=== PATIENT | male | born 1960 | race Caucasian/White ===

== ENCOUNTER 2021-11-19 08:25 | Day surgery (SDC) | payer BC, SELFPAY ==
[2021-11-13 15:41] VITALS: BMI 23.7
--- NOTE | 2021-11-16 09:12 | MHC.SHP ---
Pre-Procedural Eval Section A Date of Service: 11/16/21 The patient is an INPATIENT: No Changes since office visit: No Cold of Flu in the past 2 weeks, No New Medical Problems, No Changes in Medication and No Patient answered all questions The History & Physical has been completed within 30 days and I have reviewed it.: Yes Section B Chief Complaint: Age-related nuclear cataract, right eye Allergies: Allergies Allergy/AdvReac Type Severity Reaction Status Date / Time No Known Allergies Allergy Verified 11/13/21 15:40 Plan Diagnosis/Plan: Unchanged I have reviewed the history and physical and performed a pertinent physical examination on my patient. No changes have occurred unless specified.
--- NOTE | 2021-11-16 09:23 | P.CONAN_ITS ---
Documented by User: Zaida Benavides NP 11/16/21 09:23 HPI - Anesthesia Eval Consult details Narrative: 60yo M for Right Cataract Extraction IOL Insertion PCP cleared No previous cataract on record ON LICENSE OF [facility] Past Medical History Medical History Cataract, bilateral Environmental allergies Surgical History Surgical History Hx of colonoscopy Hx of hernia repair Social History Social History Are you a primary veterinarian laboratory animal care to a significant other at home: No Do you presently have visiting nurse or other home services: No Patient Tobacco Use Status: Never used Tobacco Are you DNR?: No Advance Directives: No (will bring DOS) Advance Directives Information Provided: Yes Advance Directives on File: No Meds Allergies Allergy/AdvReac Type Severity Reaction Status Date / Time No Known Allergies Allergy Verified 11/13/21 15:40 Home Medications Medication Instructions Recorded Confirmed Last Taken Type No Known Home Meds 11/13/21 11/13/21 Unknown History Exam Exam Date and Time: November 16, 2021 09 Height,Weight and Vital Signs: Height 6 ft 3 in Weight 86.183 kg Assessment and Plan Assessment Anesthesia Assessment: Chart Reviewed Documented by User: Vivi Curtis MD 11/19/21 09:44 ON LICENSE OF [facility] Past Medical History Medical History Cataract, bilateral Environmental allergies Family History Family history of problems with anesthesia: No Surgical History Surgical History Hx of colonoscopy Hx of hernia repair History of Problems with Anesthesia: No Social History Social History Are you a primary veterinarian laboratory animal care to a significant other at home: No Do you presently have visiting nurse or other home services: No Patient Tobacco Use Status: Never used Tobacco Are you DNR?: No Advance Directives: No (will bring DOS) Advance Directives Information Provided: Yes Advance Directives on File: No Meds Allergies Allergy/AdvReac Type Severity Reaction Status Date / Time No Known Allergies Allergy Verified 11/13/21 15:40 Home Medications Medication Instructions Recorded Confirmed Last Taken Type No Known Home Meds 11/13/21 11/13/21 Unknown History Exam Height,Weight and Vital Signs: Height 6 ft 3 in Weight 86.183 kg Vital Signs Temp Pulse Resp BP Pulse Ox O2 Del Method 11/19/21 08:47 97 F 50 17 127/79 98 Room Air Airway Mallampati Class: III TM Dist: >3cm Neck ROM: Full Loose/Missing/Broken Teeth: No Heart: RRR Lungs: CTAB Assessment and Plan Assessment Anesthesia Assessment: Anesthesia Plan Discussed Final Anesthetic Review Family History of Problems with Anesthesia: No History of Problems with Anesthesia: No NPO: Yes ASA Class: I Final Preanesthetic Review: No Changes in Pt Med Stat, Meds/Allgs Chart Reviewed, Consent Obtained/Reviewed and Anes Risks/Benef Reviewed Patient Risk: Low Procedure Risk: Low Assessment/Block/Sedation in SS: Assess/Block/Sedation-SS Anesthetic Plan Anesthetic Plan: MAC: Disposition: Standard PACU
[2021-11-19 08:47] VITALS: BP 127/79; PULSE 50; RESP 17; TEMP 36.1; O2SAT 98
[2021-11-19] MEDS: Tetracaine HCl/PF 0.5% Oph Sol 4 ML DROPS 1 DROP EYE-RIGHT (08:50)
[2021-11-19] MEDS: Tropicamide 1 % Ophth Sol 3 ML BTL 1 DROP EYE-RIGHT ×3 (08:57→09:01)
[2021-11-19] MEDS: Cyclopentolate 1 % Ophth Sol 2 ML DRPBTL 1 DROP EYE-RIGHT ×3 (08:57→08:59)
[2021-11-19] MEDS: Lactated Ringers 500 ML 50 ML IV (08:57)
[2021-11-19] MEDS: Phenylephrine HCL 2.5% Oph SoL 2 ML BOTTLE 1 DROP EYE-RIGHT ×3 (08:58→09:00)
--- NOTE | 2021-11-19 10:11 | HO.PNOPHT ---
Ophthalmology Procedure Procedure Date of Service: 11/19/21 Ophthalmology Viscoelastic: Healmelida Barrettt Dual Pack Pro Ophthalmology Lenses: TECNIS [id number] (9) Procedure Notes: PREOPERATIVE DIAGNOSIS: Decreased visual acuity right eye secondary to cataract POSTOPERATIVE DIAGNOSIS: Same PROCEDURE: Right cataract extraction with toric multifocal intraocular lens insertion [place] 91Degrees SURGEON: Anuel Urbina M.D. ANESTHESIA: Topical/MAC ESTIMATED BLOOD LOSS: None COMPLICATIONS: None After obtaining informed consent, the patient was brought to the operating room suite and placed in the supine position. After adequate sedation per anesthesia, topical drops of Tetracaine were given to the right eye. The eye was then prepped and draped in the usual sterile fashion. The operating room microscope was then positioned over the operative eye and a lid speculum placed. A paracentesis was created. Viscoelastic was then instilled into the anterior chamber. A three plane incision was then created temporally, utilizing a 2.85 mm keratome. Capsulotomy forceps were then utilized to create a circular tear capsulotomy. Hydrodissection and hydrodelineation were carried out until adequate mobilization of the nucleus occurred. Phacoemulsification was then utilized to remove the dense central nucleus followed by removal of the cortical material utilizing the automated aspiration irrigation unit. Viscoelastic was instilled into the posterior capsular bag followed by placement of a toric multifocal posterior chamber intraocular lens axis 91 degrees without difficulty. The residual Viscoelastic was then removed utilizing the automated IA machine. The wound was checked and found to be watertight. The patient tolerated the procedure well and the lid speculum was removed. Intracameral injection of Vigamox 0.1 mL followed by a subtenon injection of Kenalog-40 0.2 mL were administered. The patient will be seen in the a.m.
[2021-11-19 11:02] VITALS: BP 158/81; PULSE 59; RESP 16; TEMP 36.8; O2SAT 100
--- NOTE | 2021-11-19 13:47 | HO.PNOPHT ---
Ophthalmology Procedure Procedure Date of Service: 11/19/21 Ophthalmology Viscoelastic: Healon Duet Dual Pack Pro Ophthalmology Lenses: TECNIS MULTI [id number] (9) Procedure Notes: PREOPERATIVE DIAGNOSIS: Decreased visual acuity right eye secondary to cataract POSTOPERATIVE DIAGNOSIS: Same PROCEDURE: Right cataract extraction with multifocal intraocular lens insertion; Sulcus fixation SURGEON: Anuel Urbina M.D. ANESTHESIA: Topical/MAC ESTIMATED BLOOD LOSS: None COMPLICATIONS: Capsular Rupture After obtaining informed consent, the patient was brought to the operating room suite and placed in the supine position. After adequate sedation per anesthesia, topical drops of Tetracaine were given to the right eye. The eye was then prepped and draped in the usual sterile fashion. The operating room microscope was then positioned over the operative eye and a lid speculum placed. A paracentesis was created. Viscoelastic was then instilled into the anterior chamber. A three plane incision was then created temporally, utilizing a 2.85 mm keratome. Capsulotomy forceps were then utilized to create a circular tear capsulotomy. Hydrodissection and hydrodelineation were carried out until adequate mobilization of the nucleus occurred. Phacoemulsification was then utilized to remove the dense central nucleus followed by removal of the cortical material utilizing the automated aspiration irrigation unit. Viscoelastic was instilled into the posterior capsular bag followed by placement of a multifocal posterior chamber intraocular lens without difficulty. A small wisp of vireous was noted in the anerior chamber. Also a area of Zonular dihiscence. An Anterior Vitrectomy was accomplihed. A capsular ring was placed. After removal of viscoelastic was removed the ring was malpostionedd espite multiple attempts to reposition. I elected to remove the Capsular Ring as well as the previos placed PCIOL A 3 piece multifocal lens was then positioned into the sulcus. The residual Viscoelastic was then removed utilizing the Anterior vitrector. The wound was checked and found to be watertight. The patient tolerated the procedure well and the lid speculum was removed. Intracameral injection of Vigamox 0.1 mL followed by a subtenon injection of Kenalog-40 0.2 mL were administered. The patient will be seen in the a.m.
== END 2021-11-19 11:18 | disposition home or self-care (01) ==
PROVIDERS: PCP Internal Medicine; Visit Provider Ophthalmology
PROC: (CPT 66982; principal; 2021-11-19 10:30)
DX: H25.11 Age-related nuclear cataract, right eye (principal); H52.13 Myopia, bilateral; H52.31 Anisometropia; H59.211 Accidental puncture and laceration of right eye and adnexa during an ophthalmic procedure; H27.8 Other specified disorders of lens
CPT/HCPCS: 66982; 67005; J2250; J3010; J3300; V2788

== ENCOUNTER 2022-07-29 10:06 | Day surgery (SDC) | payer BC, SELFPAY ==
[2022-07-10 10:26] VITALS: BMI 23.7
--- NOTE | 2022-07-26 08:14 | MHC.SHP ---
Pre-Procedural Eval Section A Date of Service: 07/26/22 The patient is an INPATIENT: No Changes since office visit: No Cold of Flu in the past 2 weeks, No New Medical Problems, No Changes in Medication and No Patient answered all questions The History & Physical has been completed within 30 days and I have reviewed it.: Yes Section B Chief Complaint: Displacement of intraocular lens, initial encounte Allergies: Allergies Allergy/AdvReac Type Severity Reaction Status Date / Time No Known Allergies Allergy Verified 11/13/21 15:40 Plan Diagnosis/Plan: Unchanged I have reviewed the history and physical and performed a pertinent physical examination on my patient. No changes have occurred unless specified. Time Spent With Patient Time: Total time managing care of this patient today ____ minutes.
--- NOTE | 2022-07-26 09:40 | HO.ANESPROP2 ---
Documented by User: Zaida Benavides NP 07/26/22 09:41 HPI - Anesthesia Eval Consult details Narrative: 61yo M for Right REPOSITION Cataract Extraction IOL Insertion PCP cleared Right cataract originally done 11/2021 with [facility] Past Medical History Medical History Cataract, bilateral Environmental allergies Family History Family history of problems with anesthesia: No Surgical History Surgical History Hx of colonoscopy Hx of hernia repair Hx of right cataract extraction History of Problems with Anesthesia: No Social History Social History Are you a primary career portals teacher to a significant other at home: No Do you presently have visiting nurse or other home services: No Patient Tobacco Use Status: Never used Tobacco Are you DNR?: No Advance Directives: No Advance Directives Information Provided: Yes (brochure mailed) Advance Directives on File: No Recently lost weight without trying: No Eating poorly because of decreased appetite: No Nutrition Risks: No Nutritional Risk Poor oral hygiene: No Meds Allergies Allergy/AdvReac Type Severity Reaction Status Date / Time No Known Allergies Allergy Verified 11/13/21 15:40 Home Medications Medication Instructions Recorded Confirmed Last Taken Type No Known Home Meds 11/13/21 07/10/22 Unknown History Exam Exam Date and Time: July 26, 2022 0940 Height,Weight and Vital Signs: Height 6 ft 3 in Weight 86.183 kg Assessment and Plan Assessment Anesthesia Assessment: Chart Reviewed Final Anesthetic Review Family History of Problems with Anesthesia: No History of Problems with Anesthesia: No Documented by User: Jose Fink MD 07/29/22 12:08 [facility] Past Medical History Medical History Cataract, bilateral Environmental allergies Surgical History Surgical History Hx of colonoscopy Hx of hernia repair Hx of right cataract extraction Social History Social History Are you a primary career portals teacher to a significant other at home: No Do you presently have visiting nurse or other home services: No Patient Tobacco Use Status: Never used Tobacco Are you DNR?: No Advance Directives: No Advance Directives Information Provided: Yes (brochure mailed) Advance Directives on File: No Recently lost weight without trying: No Eating poorly because of decreased appetite: No Nutrition Risks: No Nutritional Risk Poor oral hygiene: No Meds Allergies Allergy/AdvReac Type Severity Reaction Status Date / Time No Known Allergies Allergy Verified 11/13/21 15:40 Home Medications Medication Instructions Recorded Confirmed Last Taken Type No Known Home Meds 11/13/21 07/10/22 Unknown History Exam Airway Mallampati Class: II TM Dist: >3cm Neck ROM: Full Loose/Missing/Broken Teeth: No Heart: [id number] Lungs: cta b/l Assessment and Plan Assessment Anesthesia Assessment: Anesthesia Plan Discussed Final Anesthetic Review NPO: Yes ASA Class: II Final Preanesthetic Review: No Changes in Pt Med Stat, Meds/Allgs Chart Reviewed, Consent Obtained/Reviewed and Anes Risks/Benef Reviewed Patient Risk: Low Procedure Risk: Low Assessment/Block/Sedation in SS: Assess/Block/Sedation-SS Anesthetic Plan Anesthetic Plan: MAC: and Agree w/ Assess. and Plan Disposition: Standard PACU
[2022-07-29 11:38] VITALS: BP 124/53; PULSE 53; RESP 18; TEMP 36.7; O2SAT 97
[2022-07-29] MEDS: Lactated Ringers 500 ML 50 ML IV (11:53)
[2022-07-29] MEDS: Tetracaine HCl/PF 0.5% Oph Sol 4 ML DROPS 1 DROP EYE-RIGHT (11:53)
[2022-07-29] MEDS: Phenylephrine HCL 2.5% Oph SoL 2 ML BOTTLE 1 DROP EYE-RIGHT ×3 (11:53→12:06)
[2022-07-29] MEDS: Ketorolac Tromethamine 0.5% Op 5 ML DROPS 1 DROP EYE-RIGHT ×3 (11:54→12:06)
[2022-07-29] MEDS: Cyclopentolate 1 % Ophth Sol 2 ML DRPBTL 1 DROP EYE-RIGHT ×3 (11:54→12:06)
[2022-07-29] MEDS: Tropicamide 1 % Ophth Sol 3 ML BTL 1 DROP EYE-RIGHT ×3 (11:54→12:06)
[2022-07-29 13:06] VITALS: BP 143/87; PULSE 50; RESP 16; TEMP 36.6; O2SAT 100
--- NOTE | 2022-07-29 23:45 | OP_ITS ---
DATE OF SERVICE: 07/29/2022 SURGEON: Anuel Urbina MD PREOPERATIVE DIAGNOSIS: POSTOPERATIVE DIAGNOSIS: Dislocated IOL of the right eye. PROCEDURE PERFORMED: ESTIMATED BLOOD LOSS: COMPLICATIONS: ANESTHESIA: MAC. ASSISTANTS: SPECIMENS: INDICATION FOR SURGERY: Dislocated IOL of the right eye. PROCEDURE IN DETAIL: After obtaining informed consent, the patient was brought to the operating room suite and placed in supine position. After the eye was prepped and draped in the usual sterile fashion, the operative microscope was positioned over the right eye. A lid speculum was placed. A paracentesis was then created followed by instillation of viscoelastic. The haptics were inspected and found to be in good condition. No damage or torsion of the haptics was visualized. So, the apex was repositioned in to the sulcus. Automatic irrigation and aspiration was then utilized to remove the viscoelastic. BSS was utilized to repressurize the globe and check the position of the IOL. The IOL was then stable. Vigamox 0.1 mL was instilled into the anterior chamber. The patient tolerated the procedure well and he will be seen in followup. MD ROYA Blul/MODL / [id number] MTDD
== END 2022-07-29 13:29 | disposition home or self-care (01) ==
PROVIDERS: PCP Internal Medicine; Visit Provider Ophthalmology
PROC: (CPT 66985; principal; 2022-07-29 13:20)
DX: T85.22XA Displacement of intraocular lens, initial encounter (principal); H53.141 Visual discomfort, right eye; Y77.8 Miscellaneous ophthalmic devices associated with adverse incidents, not elsewhere classified; Y92.9 Unspecified place or not applicable; Z98.41 Cataract extraction status, right eye; Z96.1 Presence of intraocular lens; J30.2 Other seasonal allergic rhinitis
CPT/HCPCS: 66825; J3301

== ENCOUNTER 2023-08-21 19:07 | Emergency (ER) | payer BC, SELFPAY ==
--- NOTE | ~2023-08-21 | CT_ITS ---
EXAMINATION: CT HEAD WITHOUT CONTRAST CT CERVICAL SPINE WITHOUT CONTRAST CLINICAL INFORMATION: Status post fall. Head trauma. COMPARISON: None TECHNIQUE: Contiguous axial images are obtained from the skull base to the vertex without intravenous contrast administration. Multidetector volumetric CT imaging of the cervical spine is acquired without intravenous contrast administration. Postprocessing is performed at a dedicated workstation. Multiplanar reformatted images are submitted. This CT scan was performed using dose optimization techniques as appropriate to a performed exam including the following: *Automated exposure control *Adjustment of mA and/or kV according to patient size (this includes techniques or standardized protocols for targeted exams were dose is matched to indication/reason for exam; i.e. extremities or head) *Use of iterative reconstruction technique. DLP: 748.46 mGy-cm (CT head). 400.87 mGy-cm (CT Cervical spine). FINDINGS: CT HEAD: Ventricles and sulci are age-appropriate. There is no evidence of acute intracranial hemorrhage, midline shift or mass effect. Sharpe to white matter differentiation is well preserved. No evidence of acute territorial edematous infarction. No abnormal extra-axial fluid collection is noted. Mild cerebral volume loss. No abnormal extra-axial fluid collection is noted. Osseous calvarium is intact. No evidence of significant calvarial soft tissue swelling or hematoma. Patient is status post right lens extraction. Small mucous retention cyst is noted in the inferior left maxillary sinus. Small mucous retention cyst in the left sphenoid sinus. Mild mucosal thickening in the left frontal sinus and left ethmoid air cells. The mastoid air cells and middle ear cavities are well-aerated. CT CERVICAL SPINE: The vertebral body heights and alignment are maintained. Posterior elements are intact and in normal alignment. Atlantoaxial and atlantooccipital alignments are maintained. No evidence of prevertebral soft tissue swelling. No evidence of significant central canal or neural foraminal stenosis. No focal thyroid nodule. The airway is patent. Pleural parenchymal opacity is noted at the right apex posteriorly with more discrete nodular component measuring 1 cm in maximum dimension (series 11 image 331). CT/CT cervical spine wo IV con IMPRESSION: 1. No evidence of acute intracranial abnormality. Specifically, there is no evidence of acute intracranial hemorrhage or acute fracture of the osseous calvarium. 2. No evidence of acute fracture or traumatic subluxation in the cervical spine. 3. Pleural parenchymal opacity at the right apex posteriorly with more discrete nodular component measuring 1 cm in maximum dimension. The finding is better evaluated on the chest CT performed on the same day on 08/21/2023. Please refer to the report of chest CT for detailed description and management recommendation of the finding.
--- NOTE | ~2023-08-21 | XR_ITS ---
EXAMINATION: XR HAND AND WRIST, LEFT XR HAND AND WRIST, RIGHT XR SHOULDER, RIGHT CLINICAL INFORMATION: Fall with bilateral hand pain and right shoulder pain COMPARISON: None available. TECHNIQUE: Four views of the right shoulder. 4 views each hand FINDINGS: Right shoulder: The bones and soft tissues are normal. No fracture. Glenohumeral and acromioclavicular alignment is anatomic with normal joint space. No abnormal soft tissue calcifications. Right hand and wrist: There is some mild degenerative changes seen at the PIP joint of the fifth digit. Otherwise the exam is unremarkable. No fractures or dislocations. Left hand and wrist: There is some chondral cysts present in the metacarpal head of the third digit. No fractures or dislocations are seen. No significant degenerative changes are identified. XR/XR shoulder RT min 2V IMPRESSION: 1. No evidence of an acute osseous injury. 2. Mild degenerative changes in the right fifth PIP joint and left third metacarpal head.
--- NOTE | ~2023-08-21 | XR_ITS ---
EXAMINATION: XR HAND AND WRIST, LEFT XR HAND AND WRIST, RIGHT XR SHOULDER, RIGHT CLINICAL INFORMATION: Fall with bilateral hand pain and right shoulder pain COMPARISON: None available. TECHNIQUE: Four views of the right shoulder. 4 views each hand FINDINGS: Right shoulder: The bones and soft tissues are normal. No fracture. Glenohumeral and acromioclavicular alignment is anatomic with normal joint space. No abnormal soft tissue calcifications. Right hand and wrist: There is some mild degenerative changes seen at the PIP joint of the fifth digit. Otherwise the exam is unremarkable. No fractures or dislocations. Left hand and wrist: There is some chondral cysts present in the metacarpal head of the third digit. No fractures or dislocations are seen. No significant degenerative changes are identified. XR/XR hand wrist RT IMPRESSION: 1. No evidence of an acute osseous injury. 2. Mild degenerative changes in the right fifth PIP joint and left third metacarpal head.
--- NOTE | ~2023-08-21 | CT_ITS ---
EXAMINATION: CT CHEST WITHOUT CONTRAST CLINICAL INFORMATION: Fall from ladder with right posterior rib pain COMPARISON: None available. TECHNIQUE: Multidetector volumetric CT imaging of the chest was done. Axial MIP volume rendering provided. Sagittal and coronal reformatted images were obtained. This CT examination was performed using dose optimization techniques as appropriate, variously including the following: *Automated exposure control *Adjustment of mA and/or kV according to patient size (this includes techniques or standardized protocols for targeted exams where dose is matched to indication/reason for exam; i.e. extremities or head) *Use of iterative reconstruction technique DLP: 342 mGy-cm FINDINGS: LUNGS: There is mild biapical pleural parenchymal thickening, right greater than left. The lungs are clear with no evidence of inflammation or concerning nodules. Tiny 2 mm right upper lobe subpleural nodule is present (5:201). No pneumo or hemothorax. MEDIASTINUM: The mediastinum is normal. CORONARY ARTERY CALCIFICATION: None visualized on this study. PLEURA: There is no pleural effusion. No pleural mass or thickening. AXILLA: No lymphadenopathy. UPPER ABDOMEN: There is a 2.4 mm nonobstructing left lower pole renal calculus. There Is a benign 1.1 cm cyst in the right lobe of the liver (3:61). OSSEOUS STRUCTURES: There are mildly displaced fractures involving the right 8th and 9th posterolateral ribs. There are barely perceptible nondisplaced fractures involving the right 4th through 7th posterolateral ribs. CT/CT chest wo IV con IMPRESSION: 1. Multiple right-sided rib fractures as described above. 2. Incidental note made of a 2 mm right upper lobe nodule, nonobstructing left renal calculus and benign hepatic cyst. Fleischner guidelines were followed.
--- NOTE | ~2023-08-21 | XR_ITS ---
EXAMINATION: XR HAND AND WRIST, LEFT XR HAND AND WRIST, RIGHT XR SHOULDER, RIGHT CLINICAL INFORMATION: Fall with bilateral hand pain and right shoulder pain COMPARISON: None available. TECHNIQUE: Four views of the right shoulder. 4 views each hand FINDINGS: Right shoulder: The bones and soft tissues are normal. No fracture. Glenohumeral and acromioclavicular alignment is anatomic with normal joint space. No abnormal soft tissue calcifications. Right hand and wrist: There is some mild degenerative changes seen at the PIP joint of the fifth digit. Otherwise the exam is unremarkable. No fractures or dislocations. Left hand and wrist: There is some chondral cysts present in the metacarpal head of the third digit. No fractures or dislocations are seen. No significant degenerative changes are identified. XR/XR hand wrist LT IMPRESSION: 1. No evidence of an acute osseous injury. 2. Mild degenerative changes in the right fifth PIP joint and left third metacarpal head.
[2023-08-21 19:12] VITALS: BP 127/65; PULSE 71; RESP 18; TEMP 36.9; O2SAT 99; BMI 24.4
--- NOTE | 2023-08-21 19:22 | ED.GENADULT ---
HPI - General Adult General Chief complaint: Fall Stated complaint: fell of ladder, hurt upper back Time Seen by Provider: 08/21/23 19:33 Source: patient and family Mode of arrival: ambulatory Limitations: no limitations History of Present Illness ED Provider: Ashley Arizmendi PA-C HPI narrative: 62-year-old male with no significant medical history presents to the ER for evaluation of right-sided posterior rib pain, right arm pain after he fell approximately 4 ft off of a ladder while trimming hedges today. He states he lost his balance, fell backward off of the ladder, extending his right arm to help break his fall. Hit the back of his head sustaining an abrasion to the top of his head. He did not lose consciousness. He has on anticoagulation. Reports limited range of motion of the right upper extremity due to pain. He also has pain in his right posterior ribs and shoulder blade. He denies any chest pain or abdominal pain. No lower extremity pain or injury. No neck pain. MD complaint: Back pain and rib pain, right upper extremity pain after fall off a ladder Onset (ago): hour(s) Location: back, right and upper extremity Radiation: non-radiation Severity: moderate Severity scale (1-10): 7 Quality: aching Pain Consistency: intermittent Relieving factors: rest Exacerbating factors: movement Associated symptoms: denies other symptoms Treatments prior to arrival: none Related Data Previous Rx's ?Medication ?Instructions ?Recorded gabapentin 100 mg capsule 100 mg PO TID #60 caps 08/21/23 oxycodone 5 mg tablet 5 mg PO Q6H PRN severe pain (scale 08/21/23 score 7-10) #14 tabs Allergies Allergy/AdvReac Type Severity Reaction Status Date / Time No Known Allergies Allergy Verified 08/21/23 19:16 Review of Systems Review of Systems: Yes all other systems are reviewed and are negative PMFSH Past Medical History Medical History Cataract, bilateral Environmental allergies Surgical History Hx of colonoscopy Hx of hernia repair Hx of right cataract extraction Social History Social History Are you a primary animal care taker to a significant other at home: No Do you presently have visiting nurse or other home services: No Patient Tobacco Use Status: Never used Tobacco Smoked in Last 30 Days: No Use of substances other than those prescribed or required for medical reasons: No Advance Directives: No Advance Directives Information Provided: No Physical Exam ED Vital Signs: Vital Signs - 24 hr 08/21/23 19:12 08/21/23 20:00 08/21/23 22:00 Temperature 98.4 F 98.5 F Pulse Rate 71 71 63 Respiratory Rate 18 16 16 Blood Pressure 127/65 137/74 123/73 Pulse Oximetry 99 100 98 Oxygen Delivery Method Room Air Room Air Room Air 08/21/23 22:23 Temperature 98.5 F Pulse Rate 63 Respiratory Rate 16 Blood Pressure 123/73 Pulse Oximetry 98 Oxygen Delivery Method Room Air BMI result Body Mass Index 24.4 Appearance: Alert. Oriented X3. No acute distress. Head: normocephalic, 3cm superficial abrasion on the vertex of the scalp, no lacerations or bleeding Eyes: Pupils equal, round and reactive to light. ENT: Pharynx normal. No tonsillar swelling or exudate. Neck: Normal inspection. Neck supple. No midline tenderness. CVS: Normal heart rate and rhythm. Pulses normal. Respiratory: No respiratory distress. Breath sounds normal. Abdomen: Soft and nontender. +BS x4. no flank ecchymosis Back: normal inspection. no midline tenderness of the thoracic or lumbar spines. mild tenderness to the area under the right scapula and right lateral ribs. Skin: Skin warm and dry. Normal skin color. Normal skin turgor. No rashes. Extremities: No lower extremity edema. No joint swelling. superficial abrasions to the right wrist with normal ROM, no point tenderness. NV intact distally. right shoulder with limited abduction. negative empty can test. Neuro/psych: Oriented X 3. No motor deficit. No sensory deficit. CN II-XII intact. Normal speech and cognition. Course Course Course Narrative: RME: done by RONN Castillo. 62-year-old male presents to ED for fall from 4 ft ladder. Patient states hitting head, right shoulder, and bilateral upper extremities. Patient denies any loss of consciousness. Patient denies being on blood thinners. Positive for bilateral wrist abrasions. Mild shoulder tenderness on palpation. Will send for imaging. Medications Administered Discontinued Medications Generic Name Dose Route Start Last Admin Trade Name Freq PRN Reason Stop Dose Admin Acetaminophen 975 mg 08/21/23 19:44 08/21/23 20:07 Acetaminophen 325 Mg Tablet PO 08/21/23 19:45 975 mg ONCE ONE Administration Hydrocodone Bitart/Acetaminophen 1 tab 08/21/23 21:17 08/21/23 21:32 Hydrocodone Bit/Acetam 5/325 Tablet PO 08/21/23 21:18 1 tab ONCE ONE Administration Gabapentin 100 mg 08/21/23 21:17 08/21/23 21:32 Gabapentin 100 Mg Capsule PO 08/21/23 21:18 100 mg ONCE ONE Administration Medical Decision Making Medical Decision Making MDM Narrative: 62 yo male with no significant medical history presents to the ER for evaluation of right sided back and shoulder pain s/p fall from 4 ft ladder today. +head strike but no LOC. no point tenderness of the ribs on exam but given the mechanism a CT scan was performed - this revealed multiple right sided rib fractures. patient reported minimal pain unless he moved. only opting for tylenol. discussed the results of his CT and the concerns of complications of multiple rib fractures. recommended transfer to [facility] however patient would rather manage their pain at home. case was d/w Dr. Diaz from [facility] who is in agreement as multiple of the rib fx are nondisplaced- patient can be discharged w/ gababpentin, oxycodone prn, tylenol around the clock and follow up in the trauma clinic next week. he recommended presenting directly to [facility] if patient had uncontrolled pain or SOB at home. patient and his were given these recommendations and expressed understanding. all questions were answered. patient given 1st dose of gabapentin and norco here. tolerated well. pain well controlled. no hypoxia. comfortable w/ discharge home with incentive spirometry, pain control and close outpatient follow up. return precautions strictly reviewed. Differential Diagnosis Differential Diagnoses: The differential diagnosis associated with the presentation includes Rib fracture, scapular fracture, hemothorax, pneumothorax, muscle strain, concussion, ICH Admission/Observation Consideration of admission/observation: Escalation of care including admission/observation considered Consult Healthcare Provider Management of the patient was discussed with: Mortician Investigator Trauma at [facility] Dr. Diaz Independent Interpretation I performed an independent interpretation of an: Plain X-Ray and CT Scan Interpretation: no acute fractures on the x-ray CT scan head without significant edema or bleeding, CT chest w/ rib fx 8 & 9 seen, agree w/ radiology read Radiology Impression Discussion of test interpretation with radiology: I have reviewed the radiologist's reading. Radiologist Impression: EXAMINATION: CT CHEST WITHOUT CONTRAST CLINICAL INFORMATION: Fall from ladder with right posterior rib pain COMPARISON: None available. TECHNIQUE: Multidetector volumetric CT imaging of the chest was done. Axial MIP volume rendering provided. Sagittal and coronal reformatted images were obtained. This CT examination was performed using dose optimization techniques as appropriate, variously including the following: *Automated exposure control *Adjustment of mA and/or kV according to patient size (this includes techniques or standardized protocols for targeted exams where dose is matched to indication/reason for exam; i.e. extremities or head) *Use of iterative reconstruction technique DLP: 342 mGy-cm FINDINGS: LUNGS: There is mild biapical pleural parenchymal thickening, right greater than left. The lungs are clear with no evidence of inflammation or concerning nodules. Tiny 2 mm right upper lobe subpleural nodule is present (5:201). No pneumo or hemothorax. MEDIASTINUM: The mediastinum is normal. CORONARY ARTERY CALCIFICATION: None visualized on this study. PLEURA: There is no pleural effusion. No pleural mass or thickening. AXILLA: No lymphadenopathy. UPPER ABDOMEN: There is a 2.4 mm nonobstructing left lower pole renal calculus. There Is a benign 1.1 cm cyst in the right lobe of the liver (3:61). OSSEOUS STRUCTURES: There are mildly displaced fractures involving the right 8th and 9th posterolateral ribs. There are barely perceptible nondisplaced fractures involving the right 4th through 7th posterolateral ribs. CT/CT chest wo IV con IMPRESSION: 1. Multiple right-sided rib fractures as described above. 2. Incidental note made of a 2 mm right upper lobe nodule, nonobstructing left renal calculus and benign hepatic cyst. EXAMINATION: CT HEAD WITHOUT CONTRAST CT CERVICAL SPINE WITHOUT CONTRAST CLINICAL INFORMATION: Status post fall. Head trauma. COMPARISON: None TECHNIQUE: Contiguous axial images are obtained from the skull base to the vertex without intravenous contrast administration. Multidetector volumetric CT imaging of the cervical spine is acquired without intravenous contrast administration. Postprocessing is performed at a dedicated workstation. Multiplanar reformatted images are submitted. This CT scan was performed using dose optimization techniques as appropriate to a performed exam including the following: *Automated exposure control *Adjustment of mA and/or kV according to patient size (this includes techniques or standardized protocols for targeted exams were dose is matched to indication/reason for exam; i.e. extremities or head) *Use of iterative reconstruction technique. DLP: 748.46 mGy-cm (CT head). 400.87 mGy-cm (CT Cervical spine). FINDINGS: CT HEAD: Ventricles and sulci are age-appropriate. There is no evidence of acute intracranial hemorrhage, midline shift or mass effect. Sharpe to white matter differentiation is well preserved. No evidence of acute territorial edematous infarction. No abnormal extra-axial fluid collection is noted. Mild cerebral volume loss. No abnormal extra-axial fluid collection is noted. Osseous calvarium is intact. No evidence of significant calvarial soft tissue swelling or hematoma. Patient is status post right lens extraction. Small mucous retention cyst is noted in the inferior left maxillary sinus. Small mucous retention cyst in the left sphenoid sinus. Mild mucosal thickening in the left frontal sinus and left ethmoid air cells. The mastoid air cells and middle ear cavities are well-aerated. CT CERVICAL SPINE: The vertebral body heights and alignment are maintained. Posterior elements are intact and in normal alignment. Atlantoaxial and atlantooccipital alignments are maintained. No evidence of prevertebral soft tissue swelling. No evidence of significant central canal or neural foraminal stenosis. No focal thyroid nodule. The airway is patent. Pleural parenchymal opacity is noted at the right apex posteriorly with more discrete nodular component measuring 1 cm in maximum dimension (series 11 image 331). CT/CT head/brain wo IV con IMPRESSION: 1. No evidence of acute intracranial abnormality. Specifically, there is no evidence of acute intracranial hemorrhage or acute fracture of the osseous calvarium. 2. No evidence of acute fracture or traumatic subluxation in the cervical spine. 3. Pleural parenchymal opacity at the right apex posteriorly with more discrete nodular component measuring 1 cm in maximum dimension. The finding is better evaluated on the chest CT performed on the same day on 08/21/2023. Please refer to the report of chest CT for detailed description and management recommendation of the finding. EXAMINATION: XR HAND AND WRIST, LEFT XR HAND AND WRIST, RIGHT XR SHOULDER, RIGHT CLINICAL INFORMATION: Fall with bilateral hand pain and right shoulder pain COMPARISON: None available. TECHNIQUE: Four views of the right shoulder. 4 views each hand FINDINGS: Right shoulder: The bones and soft tissues are normal. No fracture. Glenohumeral and acromioclavicular alignment is anatomic with normal joint space. No abnormal soft tissue calcifications. Right hand and wrist: There is some mild degenerative changes seen at the PIP joint of the fifth digit. Otherwise the exam is unremarkable. No fractures or dislocations. Left hand and wrist: There is some chondral cysts present in the metacarpal head of the third digit. No fractures or dislocations are seen. No significant degenerative changes are identified. XR/XR shoulder RT min 2V IMPRESSION: 1. No evidence of an acute osseous injury. 2. Mild degenerative changes in the right fifth PIP joint and left third metacarpal head. Independent Historian Clinical information obtained from an independent historian. History obtained from or confirmed by: Spouse Prescription Management I considered prescription management with: Pain Medication Critical Care Time Critical Care Time Critical Care Time: Yes Total Critical Care Time: 32 Attestation: I have personally provided critical care time exclusive of time spent on separately billable procedures. Time includes review of lab data, radiology results, discussion with consultants, and monitoring for potential decompensation. Intervention performed as documented. Discharge Plan Discharge Clinical Impression: Multiple fractures of ribs of right side Qualifiers: Encounter type: initial encounter Fracture type: closed Qualified Code(s): S22.41XA - Multiple fractures of ribs, right side, initial encounter for closed fracture Patient Disposition: Home, Self-Care Instructions: Rib Fracture (ED) Additional Instructions: Your CT scan today showed multiple rib fractures Treatment is pain control and exercise your lungs to prevent pneumonia Call the Trauma Clinic next week to arrange follow up - [phone]. Dr. Diaz from [facility] recommended follow up in the clinic Take Tylenol 1000 mg every 6 hours Take the prescribed Gabapentin 100 mg 2-3 times per day Take the prescribed oxycodone as needed for severe pain - do not drive after taking this medication Use the incentive spirometer 1-2 times per hour - 10 breaths at a time. If you develop new or worsening symptoms call 911 or come back to the ER for further evaluation. EXAMINATION: CT CHEST WITHOUT CONTRAST CLINICAL INFORMATION: Fall from ladder with right posterior rib pain FINDINGS: LUNGS: There is mild biapical pleural parenchymal thickening, right greater than left. The lungs are clear with no evidence of inflammation or concerning nodules. Tiny 2 mm right upper lobe subpleural nodule is present (5:201). No pneumo or hemothorax. MEDIASTINUM: The mediastinum is normal. CORONARY ARTERY CALCIFICATION: None visualized on this study. PLEURA: There is no pleural effusion. No pleural mass or thickening. AXILLA: No lymphadenopathy. UPPER ABDOMEN: There is a 2.4 mm nonobstructing left lower pole renal calculus. There Is a benign 1.1 cm cyst in the right lobe of the liver (3:61). OSSEOUS STRUCTURES: There are mildly displaced fractures involving the right 8th and 9th posterolateral ribs. There are barely perceptible nondisplaced fractures involving the right 4th through 7th posterolateral ribs. CT/CT chest wo IV con IMPRESSION: 1. Multiple right-sided rib fractures as described above. 2. Incidental note made of a 2 mm right upper lobe nodule, nonobstructing left renal calculus and benign hepatic cyst. Prescriptions: New gabapentin 100 mg capsule 100 mg PO TID Qty: 60 0RF oxycodone 5 mg tablet 5 mg PO Q6H PRN (Reason: severe pain (scale score 7-10)) Qty: 14 0RF Rx Instructions: Partial Fill upon patient request. Referrals: Flavio Diaz MD [Physician] - Interventions: ED Discharge Assessment Last Done: 08/21/23 22:23 Discharge Date/Time: 08/21/23 22:24 Print Language: Uzbek
[2023-08-21 20:00] VITALS: BP 137/74; PULSE 71; RESP 16; O2SAT 100
[2023-08-21] MEDS: Acetaminophen 325 MG TABLET 975 MG PO (20:07)
[2023-08-21] MEDS: HYDROcodone Bit/Acetam 5/325 TABLET 1 TAB PO (21:32)
[2023-08-21] MEDS: Gabapentin 100 MG CAPSULE PO (21:32)
[2023-08-21 22:00] VITALS: BP 123/73; PULSE 63; RESP 16; TEMP 36.9; O2SAT 98
[2023-08-21 22:23] VITALS: BP 123/73; PULSE 63; RESP 16; TEMP 36.9; O2SAT 98
== END 2023-08-21 22:24 | disposition home or self-care (01) ==
PROVIDERS: Emergency Provider Emergency Medicine
DX: S22.41XA Multiple fractures of ribs, right side, initial encounter for closed fracture (principal); S60.812A Abrasion of left wrist, initial encounter; S60.811A Abrasion of right wrist, initial encounter; M54.2 Cervicalgia; M79.642 Pain in left hand; M79.641 Pain in right hand; M25.511 Pain in right shoulder; R51.9 Headache, unspecified; R07.89 Other chest pain; M25.532 Pain in left wrist; M25.531 Pain in right wrist; W11.XXXA Fall on and from ladder, initial encounter; Y93.9 Activity, unspecified; Y92.007 Garden or yard of unspecified non-institutional (private) residence as the place of occurrence of the external cause; Y99.8 Other external cause status; Z79.899 Other long term (current) drug therapy
CPT/HCPCS: 70450; 71250; 72125; 73030; 73110; 73130; 94010; 99284